=== PATIENT | female | born 1960 | race Caucasian/White ===

== ENCOUNTER → 2017-09-30 | Outpatient (CLI) | payer BC ==
[~2017-09-30] MED LIST: 00186-0370-20 IH; ACCOLATE 220 MG/1 TA PO; ADVAIR 250/28 DISKUS IH; ALBUTEROL0.09 MG/A1 IH; ALBUTEROL1.25 MG/3 IH; BACTRIM DS 8001 TAB PO; BIAXIN; BIAXIN 500MG T500 MG PO; CETIRIZINE PO; ERY-TAB250 M1 PO; ERYTHROMYCIN250 MG PO; FLONASE NASAL S16 GM NS; GENTAMICIN180 MG/501 NS; IPRATROPIUM BROM3 M1 IH; MUCINEX 60600 MG/TA1 PO; MUCINEX D 600 M1 TER PO; MUCINEX D1 TER PO; NASONEX SPRAY17 GM NS; PREDNISONE10 MG PO; PREDNISONE20 MG PO; PRILOSEC 20MG20 MG PO; PROTONIX 40MG T40 MG PO; QVAR; QVAR0.08 MG/AC IH; RHINOCORT INH; SINGULAIR; SPIRIVA INH IH; THEODUR 300MG PO; VENTOLIN0.09 MG IH; ZANTAC 150MG T150 MG PO; ZITHROMAX Z PA250 MG PO; ZYRTEC 10MG10 MG PO; ZYRTEC ALLERGY10 MG PO; [UNRECOGNIZED DRUG - OTHER] INH; [UNRECOGNIZED DRUG - SUPPLY]
== END ==
LOC: MC.RAD 08:37
DX: Z12.31 Encounter for screening mammogram for malignant neoplasm of breast (principal)

== ENCOUNTER → 2019-01-06 | Outpatient (CLI) | payer BC | LOC: COL.RAD 07:04 | DX: N85.8 Other specified noninflammatory disorders of uterus (principal); N95.0 Postmenopausal bleeding ==

== ENCOUNTER → 2019-01-13 | Outpatient (CLI) | payer BC | LOC: MC.RAD 15:38 | DX: Z12.31 Encounter for screening mammogram for malignant neoplasm of breast (principal) | CPT/HCPCS: G0279 ==

== ENCOUNTER 2019-03-12 21:29 | Emergency (ER) | payer BC ==
[~2019-03-12] VITALS: Ht 177.8 cm; Wt 73.6 kg
[2019-03-12 21:41] VITALS: BP 120/64; PULSE 85; TEMP 98
== END 2019-03-12 22:05 | disposition left against medical advice (07) ==
LOC: COL.ER 21:29
DX: R06.02 Shortness of breath (principal)

== ENCOUNTER → 2021-01-19 | Outpatient (CLI) | payer BC ==
[~2021-01-19] MED LIST changes: +NORCO 325 MG-51 TAB PO
== END ==
LOC: MC.RAD 13:16
DX: Z12.31 Encounter for screening mammogram for malignant neoplasm of breast (principal)

== ENCOUNTER 2021-02-22 19:09 | Emergency (ER) | payer BC ==
[~2021-02-22] VITALS: Ht 177.8 cm; Wt 77.3 kg
[~2021-02-22 19:09] MED LIST changes: -NORCO 325 MG-51 TAB PO
[2021-02-22 19:10] VITALS: TEMP 97.8
[2021-02-22] MEDS ORDERED: NORCO 325 MG-51 TAB PO (21:58)
[2021-02-22 22:51] VITALS: BP 124/70; PULSE 73
== END 2021-02-22 22:54 | disposition home or self-care (01) ==
LOC: COL.ER 19:09
DX: S09.90XA Unspecified injury of head, initial encounter (principal); S01.01XA Laceration without foreign body of scalp, initial encounter; J45.909 Unspecified asthma, uncomplicated; Z79.51 Long term (current) use of inhaled steroids; Z79.52 Long term (current) use of systemic steroids; V19.9XXA Pedal cyclist (driver) (passenger) injured in unspecified traffic accident, initial encounter

== ENCOUNTER → 2022-02-21 | Outpatient (CLI) | payer BC ==
[~2022-02-21] MED LIST changes: +NORCO 325 MG-51 TAB PO
== END ==
LOC: MC.RAD 13:15
DX: Z12.31 Encounter for screening mammogram for malignant neoplasm of breast (principal)